=== PATIENT | male | born 1965 | race Caucasian/White ===

== ENCOUNTER 2021-08-15 11:56 | Emergency (ER) | payer SELFPAY ==
[~2021-08-15] VITALS: Ht 182.9 cm; Wt 90.9 kg
[2021-08-15 12:38] VITALS: TEMP 98
[2021-08-15] MEDS ORDERED: PROTONIX 40MG T40 MG PO (15:45)
[2021-08-15] MEDS ORDERED: LACTULOSE10 GM/153 PO (15:45)
[2021-08-15 16:00] VITALS: BP 120/61; PULSE 75
== END 2021-08-15 16:05 | disposition home or self-care (01) ==
LOC: COL.ER 11:56
DX: K74.60 Unspecified cirrhosis of liver (principal); N40.0 Benign prostatic hyperplasia without lower urinary tract symptoms

== ENCOUNTER 2021-08-22 09:02 | Inpatient (IN) | payer SELFPAY ==
[~2021-08-22] VITALS: Wt 109.1 kg
[~2021-08-22 09:02] MED LIST: LACTULOSE10 GM/153 PO; PROTONIX 40MG T40 MG PO
[2021-08-22 09:48] LABS: BASO # 0.1 K/mm3 (0.0-0.2); BASO % 1.2 % (0.0-2.0); EOS # 0.1 K/mm3 (0.0-0.7); EOS % 2.8 % (0-4.0); GRAN % 71.4 % (42.2-75.2); LYMPH # 0.7 K/mm3 (1.2-3.4); LYMPH % 16.8 % (20.0-51.0); MEAN CELL VOLUME 95 fl (80.0-100.0); MEAN CORPUSCULAR HGB CONC 33 g/dl (33.0-37.0); MONO # 0.3 K/mm3 (0.1-0.6); MONO % 6.9 % (1.7-9.3); PLATELET COUNT 70 K/mm3 (130-400); RED BLOOD COUNT 2.82 M/mm3 (4.20-5.60); REDCELL DISTRIBUTION WIDTH-CV 14.7 % (11.5-14.5)
[2021-08-22 09:54] LABS: HEMATOCRIT 26.9 % (42.0-52.0); HEMOGLOBIN 8.8 g/dl (13.5-18.0); MEAN CORPUSCULAR HEMOGLOBIN 31 pg (27.0-31.0)
[2021-08-22 10:01] LABS: ALANINE AMINOTRANSFERASE 21 U/L (0-55); ALBUMIN 2.1 gm/dL (3.5-5.0); ALKALINE PHOSPHATASE 100 U/L (40-150); ANION GAP 8 mmol/L (7-16); AST,SGOT 31 U/L (5-34); BILIRUBIN,TOTAL 3.8 mg/dL (0.2-1.2); BLOOD UREA NITROGEN 6 mg/dL (8-26); CARBON DIOXIDE 20 mmol/L (22-29); CHLORIDE 117 mmol/L (98-107); CREATININE, serum 0.67 mg/dL (0.72-1.25); GLUCOSE 112 mg/dL (70-99); POTASSIUM 3.5 mmol/L (3.5-4.5); SODIUM 145 mmol/L (136-145); TOTAL PROTEIN 5.3 gm/dL (6.2-8.1)
[2021-08-22 10:02] LABS: ALCOHOL(ethanol),MEDICAL < 10 mg/dL (0-10)
[2021-08-22 13:14] LABS: COLLECTION METHOD CLEAN CATCH
[2021-08-22 13:27] LABS: MUCOUS Present (NOT PRESENT); PH 7 (5-8); SQUAMOUS EPITHELIAL None Seen /hpf (0-10); URINE APPEARANCE Clear (CLEAR/HAZY); URINE BACTERIA None Seen (NONE SEEN); URINE BILIRUBIN Negative (NEGATIVE); URINE BLOOD Negative (NEGATIVE); URINE COLOR Yellow (YELLOW); URINE GLUCOSE Negative (NEGATIVE); URINE KETONE Negative (NEGATIVE); URINE LEUKOCYTE ESTERASE Negative (NEGATIVE); URINE NITRATE Negative (NEGATIVE); URINE PROTEIN(semi-quant) Negative (NEGATIVE); URINE RBC 0-2 /hpf (0-2); URINE UROBILINOGEN Negative (NEGATIVE)
[2021-08-22 14:52] LABS: INR 1.8 (0.8-3.0); PROTHROMBIN TIME 19.6 SECONDS (9.7-12.8)
[2021-08-22 14:59] LABS: TRICYCLIC ANTIDEPRESS URINE NEGATIVE
[2021-08-22 17:00] VITALS: BP 157/80; PULSE 68; TEMP 98.3
[2021-08-22 17:15] VITALS: BP 157/80; PULSE 68; TEMP 98.3
--- NOTE | 2021-08-22 19:28 | NUR ---
Patient admitted to room 355. Report recieved from JEB Guadarrama. Upon initial assessment patient was alert to name but otherwise confused. Lung sounds clear to auscultation, bowel sounds present in all four quadrants, patient jaundice, skin issues noted in admission assessment. Normal s1 and s2 sounds present, radial and pedal pulses +2 bilaterally. Patient denies any pain, discomfort, SOA, or further needs at this time. Unable to complete med rec. Patient poor historian. VSS. Fall percautions in place.
[2021-08-22 21:19] VITALS: BP 177/78; PULSE 78; TEMP 98.3
--- NOTE | 2021-08-22 21:59 | NUR ---
Patient assessed around 1924. Alert, but disoriented. Easily redirected for short periods of time. Voices no questions, needs, or concerns at this time. In bed with call light within reach.
[2021-08-23 00:50] VITALS: BP 148/84; PULSE 98; TEMP 98.2
[2021-08-23 03:34] VITALS: BP 152/73; PULSE 87; TEMP 98.8
--- NOTE | 2021-08-23 05:57 | NUR ---
Patient has been awake on and off this shift. Has been eatting well. Continues to be alert and oriented to self. Thinks he is in the hospital in [place]. Easily redirected, but forgetful. High fall risk precautions in place. In bed with call light within reach.
[2021-08-23 06:59] LABS: BASO # 0.1 K/mm3 (0.0-0.2); BASO % 1.1 % (0.0-2.0); EOS # 0.3 K/mm3 (0.0-0.7); EOS % 5.4 % (0-4.0); GRAN # 3.6 K/mm3 (1.4-6.5); LYMPH # 1.3 K/mm3 (1.2-3.4); LYMPH % 22.3 % (20.0-51.0); MEAN CELL VOLUME 95 fl (80.0-100.0); MEAN CORPUSCULAR HGB CONC 33 g/dl (33.0-37.0); MEAN PLATELET VOLUME 10.5 fl (7.4-10.4); MONO # 0.4 K/mm3 (0.1-0.6); MONO % 6.7 % (1.7-9.3); PLATELET COUNT 76 K/mm3 (130-400); RED BLOOD COUNT 2.85 M/mm3 (4.20-5.60); REDCELL DISTRIBUTION WIDTH-CV 14.6 % (11.5-14.5)
[2021-08-23 07:07] LABS: INR 1.7 (0.8-3.0)
[2021-08-23 07:18] LABS: HEMATOCRIT 27.1 % (42.0-52.0); HEMOGLOBIN 8.9 g/dl (13.5-18.0); MEAN CORPUSCULAR HEMOGLOBIN 31 pg (27.0-31.0)
[2021-08-23 07:22] LABS: ALBUMIN 2.1 gm/dL (3.5-5.0); BILIRUBIN,TOTAL 3.8 mg/dL (0.2-1.2); CALCIUM 7.9 mg/dL (8.4-10.2); CREATININE, serum 0.68 mg/dL (0.72-1.25); MAGNESIUM 1.4 mg/dL (1.6-2.6); POTASSIUM 3.1 mmol/L (3.5-4.5); TOTAL PROTEIN 5.3 gm/dL (6.2-8.1)
[2021-08-23 07:57] VITALS: BP 158/71; PULSE 86; TEMP 98.5
--- NOTE | 2021-08-23 11:00 | NUR ---
Scheduled medications given. Shift assessment performed. Patient orientated to person, but unable to answer time and place correctly. K+ and magnesium replacement in progress. Patient denies any pain, discomfort, or further needs at this time. VSS. Call light in reach. Fall percautions in place.
[2021-08-23 12:11] VITALS: BP 148/97; PULSE 84; TEMP 98.3
[2021-08-23 16:00] VITALS: BP 137/92; PULSE 79; TEMP 98.9
--- NOTE | 2021-08-23 16:10 | NUR ---
The patient presented to the ED from the [facility]. He was found naked lying in stool and urine. SARITA contacted Shira at the [facility] to follow up on the patient. Shira reports that the patient had never had any incidents before the one above. She reports that the patient has been with them for 2-3 weeks and that he was looking for jobs. She reports that the patient is not banned from them. She reports that they just cannot take him in his current medical condition and if he does not get better. SARITA then met with the patient. The patient has been oriented to self, but not location. The patient confirms [facility] He states that he has been in [place] for a couple month. He could not recall where he was at before the [facility]. He states that he is unsure if has been seeing a provider. He reports that he has been to [facility] and states that he has been established with Ronak Sanchez in the past. He then remembered that he used to live in [place] and went to a clinic there. The patient does not have a DPOA-HC. He states that he has no one. He reports that he is not , has no children, and that his parents are . He reports that he has two siblings: Kwame and Juanita Tompkins. He states that he thinks Juanita lives in [place] and Kwame in [place]. He reports that he does not get along with them though and does not have phone numbers for them. A psych consult has been ordered. SARITA to continue to follow.
--- NOTE | 2021-08-23 16:22 | NUR ---
Patient has had an ok day. Patient alert and oriented. VSS. Patient has denied any pain, discomfort, or further needs at this time. Call light in reach. Fall percautions in place.
[2021-08-23 19:33] VITALS: BP 136/82; PULSE 88; TEMP 98.4
--- NOTE | 2021-08-24 01:00 | NUR ---
PT IS A&O X4, PLEASANT ET COOPERATIVE, ANSWERS ALL QUESTIONS APPROPRIATELY @ THIS TIME. PT HAD HEADACHE EARLIER IN NIGHT ET HAD REQUESTED NAPROXEN. Maciej JUAREZ APRN WAS NOTIFIED ET NEW ORDERS WERE RECEIVED. PT DENIES PAIN @ THIS TIME BUT IS INCONTINENT OF A LARGE AMOUNT OF URINE. PT'S LINENS ET BRIEFS CHANGED. PERICARE COMPLETED. LARGE RED BRUISE IS SEEN ON PT'S HIP. PT STATES THAT IT WAS FROM A FALL HE HAD BEFORE HE CAME TO THE HOSPITAL. PT HAS BEEN EATING ET DRINKING WELL, REQUESTS FREQUENT SNACKS ET DRINKS. PT DENIES OTHER NEEDS. RESPIRATIONS ARE UNLABORED. BED ALARM ON, CALL LIGHT WITHIN REACH.
[2021-08-24 01:09] VITALS: BP 150/77; PULSE 87; TEMP 98.6
--- NOTE | 2021-08-24 03:13 | NUR ---
PT IS AWAKE IN BED ET HAS TAKEN OFF INCONTINENT BRIEFS ET BLANKETS. manager visual REPORT THAT PT HAS SEEMED CONFUSED IN CONVERSATION. PT IS ORIENTED X3 ET SEEMS TO ACT MORE INAPPROPRIATELY THAN CONFUSED. PT IS ASSISTED INTO BR WITH SBA ET GAIT BELT TO VOID ET THEN ASSISTED BACK INTO BED. PT DENIES OTHER NEEDS. BED ALARM ON. CALL LIGHT WITHIN REACH.
[2021-08-24 04:15] VITALS: BP 127/68; PULSE 80; TEMP 98.2
[2021-08-24 07:14] LABS: CREATININE, serum 0.66 mg/dL (0.72-1.25); POTASSIUM 3.7 mmol/L (3.5-4.5)
[2021-08-24 07:24] LABS: BASO % 0.8 % (0.0-2.0); EOS # 0.4 K/mm3 (0.0-0.7); GRAN # 2.9 K/mm3 (1.4-6.5); GRAN % 60.1 % (42.2-75.2); LYMPH # 1.1 K/mm3 (1.2-3.4); LYMPH % 22.1 % (20.0-51.0); MEAN CELL VOLUME 96 fl (80.0-100.0); MEAN CORPUSCULAR HGB CONC 33 g/dl (33.0-37.0); MEAN PLATELET VOLUME 11.9 fl (7.4-10.4); MONO # 0.4 K/mm3 (0.1-0.6); MONO % 8.6 % (1.7-9.3); PLATELET COUNT 54 K/mm3 (130-400); RED BLOOD COUNT 2.58 M/mm3 (4.20-5.60); REDCELL DISTRIBUTION WIDTH-CV 14.4 % (11.5-14.5)
[2021-08-24 07:25] LABS: HEMATOCRIT 24.8 % (42.0-52.0); HEMOGLOBIN 8.1 g/dl (13.5-18.0); MEAN CORPUSCULAR HEMOGLOBIN 31 pg (27.0-31.0)
--- NOTE | 2021-08-24 08:07 | NUR ---
PT ASSESSED. NO COMPLAINTS OF PAIN OR DYSPNEA. NO SIGNS OR SYMPTOMS OF DISTRESS. CALL LIGHT WITHIN REACH
[2021-08-24 08:08] VITALS: BP 129/70; PULSE 74; TEMP 97.8
[2021-08-24 12:01] VITALS: BP 130/77; PULSE 72; TEMP 97.7
[2021-08-24 16:26] VITALS: BP 143/79; PULSE 78; TEMP 97.5
[2021-08-24 20:33] VITALS: BP 149/82; PULSE 78; TEMP 97.8
--- NOTE | 2021-08-25 00:21 | NUR ---
Patient assessed around 2014. Alert and oriented x 4. Denies pain and discomfort. Voices no questions, needs, or concerns at this time. In bed with call light within reach.
[2021-08-25 00:39] VITALS: PULSE 78; TEMP 98.7
[2021-08-25 05:13] VITALS: BP 172/80; PULSE 70; TEMP 98.1
--- NOTE | 2021-08-25 06:05 | NUR ---
Patient has denied pain and discomfort this shift. Voices no questions, needs, or concerns at this time. In bed with call light within reach.
[2021-08-25 06:44] LABS: BASO % 0.9 % (0.0-2.0); EOS # 0.4 K/mm3 (0.0-0.7); GRAN # 2.9 K/mm3 (1.4-6.5); GRAN % 62.1 % (42.2-75.2); LYMPH # 0.9 K/mm3 (1.2-3.4); LYMPH % 19.8 % (20.0-51.0); MEAN CELL VOLUME 97 fl (80.0-100.0); MEAN CORPUSCULAR HGB CONC 33 g/dl (33.0-37.0); MEAN PLATELET VOLUME 10.9 fl (7.4-10.4); MONO # 0.4 K/mm3 (0.1-0.6); MONO % 8.6 % (1.7-9.3); PLATELET COUNT 63 K/mm3 (130-400); RED BLOOD COUNT 2.77 M/mm3 (4.20-5.60); REDCELL DISTRIBUTION WIDTH-CV 14.1 % (11.5-14.5)
[2021-08-25 06:53] LABS: HEMATOCRIT 26.8 % (42.0-52.0); HEMOGLOBIN 8.7 g/dl (13.5-18.0); MEAN CORPUSCULAR HEMOGLOBIN 31 pg (27.0-31.0)
[2021-08-25 07:01] LABS: CALCIUM 7.4 mg/dL (8.4-10.2); CREATININE, serum 0.63 mg/dL (0.72-1.25); MAGNESIUM 1.6 mg/dL (1.6-2.6); POTASSIUM 3.5 mmol/L (3.5-4.5)
[2021-08-25 07:22] VITALS: BP 156/85; PULSE 74; TEMP 98.2
[2021-08-25] MEDS ORDERED: MAG-OX 400400 MG/TAB PO ×2 (09:28→09:41)
[2021-08-25] MEDS ORDERED: LACTULOSE10 GM/153 PO ×2 (09:28→09:41)
--- NOTE | 2021-08-25 09:52 | NUR ---
PT ASSESSED. NO COMPLAINTS OF PAIN OR DYSPNEA. NO SIGNS OR SYMPTOMS OF DISTRESS. CALL LIGHT WITHIN REACH
--- NOTE | 2021-08-25 10:29 | NUR ---
Initial visit; Patient thanked Documentation Analyst for looking in on him, Jeffrey stated that he is always alone with no friends or family. Documentation Analyst offered encouragement, prayer and God's blessings.
--- NOTE | 2021-08-25 13:34 | NUR ---
DISCHARGE INSTRUCTIONS GIVEN. ALL QUESTIONS AND CONCERNS ANSWERED. IV REMOVED.
--- NOTE | 2021-08-25 16:42 | NUR ---
transition social worker contact Shira at [facility]. Shira states that at this moment the patient is on the "do not return list" and wanted an updates. Informed her that the patient's behavior (per physician) were a direct cause of the patient being out of his medications. Shira states that [facility] was not able to hold his bed and they do not have an available one open at this time. Phone call made to [facility] and provided information to this patient's situation. [facility] is accepting of this patient coming to them post dc. Medication voucher to [facility] is provided to the patient. Patient will be discharged with Lactulose ($45.68) and Mag-ox ($4.95). Informations faxed to [facility]. Patient provided a transportation voucher with [employer]. Phone call made and [facility] states that they can be here at 1300 to pick the patient up. Patient's RN and community service manager Milly notified. Patient is provided with a shirt, sweatpants, scarf and care bag provided to the patient. Rn notified me that the patient does have shoes and a jacket with him. Discharge plan: Be able with medication voucher and transportation voucher.
== END 2021-08-25 12:30 | disposition home or self-care (01) | DRG 442 ==
LOC: COL.ER 09:02 → MEDICAL 13:13
PROVIDERS: Personal Emergency Response Attendant; Physician Assistant; ADMIT Internal Medicine
DX: K72.90 Hepatic failure, unspecified without coma (principal); D61.818 Other pancytopenia; E87.2 Acidosis; K21.9 Gastro-esophageal reflux disease without esophagitis; D64.9 Anemia, unspecified; E87.6 Hypokalemia; K70.30 Alcoholic cirrhosis of liver without ascites; E83.42 Hypomagnesemia; T47.3X6A Underdosing of saline and osmotic laxatives, initial encounter; Z91.138 Patient's unintentional underdosing of medication regimen for other reason; Z59.00 Homelessness unspecified; Z20.822 Contact with and (suspected) exposure to COVID-19; Z23 Encounter for immunization
CPT/HCPCS: 99223-AI; 99232-AI; J1650; J3475

== ENCOUNTER 2021-08-28 12:03 | Observation (INO) | payer SELFPAY ==
[~2021-08-28] VITALS: Ht 182.9 cm; Wt 99.3 kg
[~2021-08-28 12:03] MED LIST changes: +MAG-OX 400400 MG/TAB PO
[2021-08-28 12:33] LABS: BASO # 0.1 K/mm3 (0.0-0.2); BASO % 1.5 % (0.0-2.0); EOS # 0.2 K/mm3 (0.0-0.7); EOS % 4.3 % (0-4.0); GRAN # 2.7 K/mm3 (1.4-6.5); GRAN % 67.2 % (42.2-75.2); HEMOGLOBIN 10.4 g/dl (13.5-18.0); LYMPH # 0.7 K/mm3 (1.2-3.4); LYMPH % 17.4 % (20.0-51.0); MEAN CELL VOLUME 92 fl (80.0-100.0); MEAN CORPUSCULAR HEMOGLOBIN 31 pg (27.0-31.0); MEAN CORPUSCULAR HGB CONC 34 g/dl (33.0-37.0); MEAN PLATELET VOLUME 10.1 fl (7.4-10.4); MONO # 0.4 K/mm3 (0.1-0.6); MONO % 9.1 % (1.7-9.3); PLATELET COUNT 81 K/mm3 (130-400); RED BLOOD COUNT 3.34 M/mm3 (4.20-5.60); REDCELL DISTRIBUTION WIDTH-CV 13.8 % (11.5-14.5)
[2021-08-28 12:37] LABS: HEMATOCRIT 30.7 % (42.0-52.0); INR 1.6 (0.8-3.0); PROTHROMBIN TIME 18.2 SECONDS (9.7-12.8)
[2021-08-28 12:47] LABS: ALBUMIN 2.2 gm/dL (3.5-5.0); BILIRUBIN,TOTAL 5.2 mg/dL (0.2-1.2); CALCIUM 7.9 mg/dL (8.4-10.2); CREATININE, serum 0.63 mg/dL (0.72-1.25); POTASSIUM 3.2 mmol/L (3.5-4.5); TOTAL PROTEIN 5.6 gm/dL (6.2-8.1)
--- NOTE | 2021-08-28 14:24 | NUR ---
SARITA responded to consult. The patient presented to the ED after being found wandering the streets naked. SARITA contacted Shira at the [facility]. Shira reports that [facility] was not able to take care of the patient, when he was dropped off their on Saturday. She states that they found him wandering naked in the cold again this morning and contacted EMS. She states that the patient gets confused and did not even know that his backpack was his own. She states that they would not be able to take the patient back in the condition that he is in. SARITA then contacted [facility]. [facility] reports that the patient was dropped off at their doors just an hour before they closed on Saturday. She reports that they put him up in a hotel for the weekend, but do not normally do this and the patient is not their normal clientele. [facility] reports that it appears that the patient cannot take care of himself and that he is not taking him medications. SARITA contacted [facility]. The marketing production coordinator reports that the patient has been with them before. He reports that they would not be able to take the patient right now and they are not taking any outside people. SARITA updated the patient's RN. The patient is to be admitted. SARITA made an [facility] report. Intake ID#[id number].
[2021-08-28 17:50] VITALS: BP 152/84; PULSE 70; TEMP 98.7
--- NOTE | 2021-08-28 18:02 | NUR ---
PT ARRIVED TO FLOOR, VITALS TAKEN.
--- NOTE | 2021-08-28 18:34 | NUR ---
MAG AND POTASSIUM GIVEN, DINNER ORDERED, ICE WATER GIVEN TO PT
[2021-08-28 20:03] VITALS: BP 159/82; PULSE 71; TEMP 98.5
[2021-08-29] VITALS (8 sets, daily range): BP systolic 135–165; BP diastolic 65–86; PULSE 66–81; TEMP 97.7–98.3
--- NOTE | 2021-08-29 00:09 | NUR ---
Resting in bed watching TV. Receiving lactulose every 2 hours per orders. Denies pain/nausea/shortness of breath. Has not had a BM yet. Denies current question/concerns. Call light in reach. Will monitor.
--- NOTE | 2021-08-29 01:01 | NUR ---
Patient had a large soft formed BM-mojica in color. Lactulose Q2H continues until next BM.
--- NOTE | 2021-08-29 05:13 | NUR ---
Up to bathroom at this time-large loose stool. Assisted back to bed. 3rd stool for this shift. Will start order of TID lactulose instead of Q2H. Denies current needs. Call light in reach. Will monitor.
[2021-08-29 07:10] LABS: MEAN CELL VOLUME 95 fl (80.0-100.0); MEAN CORPUSCULAR HGB CONC 33 g/dl (33.0-37.0); MEAN PLATELET VOLUME 10.6 fl (7.4-10.4); PLATELET COUNT 72 K/mm3 (130-400); RED BLOOD COUNT 2.93 M/mm3 (4.20-5.60)
[2021-08-29 07:15] LABS: HEMATOCRIT 27.8 % (42.0-52.0); HEMOGLOBIN 9.2 g/dl (13.5-18.0); MEAN CORPUSCULAR HEMOGLOBIN 31 pg (27.0-31.0)
[2021-08-29 07:19] LABS: BILIRUBIN,TOTAL 3.5 mg/dL (0.2-1.2); CALCIUM 8.3 mg/dL (8.4-10.2); CREATININE, serum 0.7 mg/dL (0.72-1.25); POTASSIUM 3.5 mmol/L (3.5-4.5); TOTAL PROTEIN 4.9 gm/dL (6.2-8.1)
--- NOTE | 2021-08-29 08:00 | NUR ---
PT PLEASANT, AOX4, DENIES PAIN, MEDICAITONS GIVEN, ASSESSMENT PERFORMED, DRINKS BROUGHT IN TO PT, VITALS REVIEWED, NO OTHER NEEDS
[2021-08-29 08:16] LABS: BASOPHIL 2 % (0-2); EOSINOPHIL 3 % (0-4)
[2021-08-29 08:17] LABS: BAND 3 % (0-10); PLATELET ESTIMATE DECREASED (NORMAL)
[2021-08-29 08:18] LABS: LYMPHOCYTE 23 % (20.0-51.0); NEUTROPHILS 59 % (42.0-75.2)
--- NOTE | 2021-08-29 12:43 | NUR ---
face worker met with patient to discuss discharge plan. Patient reports that since last discharge on Saturday, [facility] placed the patient at the [facility] and paid for three nights. Patient reports that he was dropped off with no food, water or fresh clothing. [place] noting that the patient is wearing he same shirt that i provided to him at the time of discharge on Saturday. Patient reports that he was living in an apartment in [place] when he got evicted for unknown reasons. At that time the client went to [facility] [place] [facility] and was unhappy with the conditions so he left. During this time the patient reports that the [facility] would provide him with his medication Lactulose.[facility] and ended up in [place] where he spent the night on the street. From [place] he continued migrating and that is how he ended up in [place]. Patient reports that he has been at [facility] for about a month and he has been working with Shira to establish employment and housing. Patient states that upon his dc last Saturday he did stop and [facility] and picked up his medications that i provided a voucher for. Patient reports that he does have a brother thatlives somewhere in [place] and a sister that lives in [place] but has no contact with either of them. Reports to no friends in the area. Patient verbalizes that he is aware that being out of his medications have led to an ammonia build up in his system which is what has led to his confusion. Patient verbalizes that he was not fully naked the last time he was picked up and states that his pants were messy and he was using his coat to cover up because he had no clean clothes. Patient reports to being in touch with Shira and she informed him that she was making phone calls to get him back into the [facility]. Patient reports that he is wanting to discharge to [facility] and is wanting to find a job so he can become independent again. Shira with [facility] contacted who confirms that the patient had been actively looking for jobs and was trying to get him housing. She reports that the client IS able to come back to the [facility] when he is medically stable with his medications, but unfortunately does not have a bed available at this time. Informed Shira that Jannet is currently here talking with the patient and Jannet will get in contact with Shira to collaborate on this patient's future housing plans. Jannet with [facility] comes to vist with the patient. Jannet reports after her meeting with the patient that she stressed the importance of staying on his medication. She reports that [facility] both have spots open that she can help get him into and that she verbalized this to the patient. She reports to me that she arranged to meet the patient at [facility] at 1000 on Saturday to create a plan. Informed Jannet that Shira with [facility] states they do not have a bed open at this time and that the patient does not have a place to go once he is ready for dc. Both Rosa and Nam agree that the patient would not be a good candidate for eith the CSU or a Level II facility due to his high level of functioning. Encouraged Jannet to reach out to Shira for more information on this patient. Physician staff notified of the above interactions and that the patient may have to be discharged without a place to go until Saturday's meeting.
--- NOTE | 2021-08-29 15:50 | NUR ---
Patient wanted to talk due to concerns of Shira at [facility] being unwilling to set up meeting for 1000 am on Saturday and wanted me to reach out to her. Contact made with Shira by me stating that Jannet was the one wanting to set up a meeting with the patient and Shira there at [facility]. Provided Shira with both Jannet's office phone number and cell number. Shira reports that she will reach out to Rosa.
--- NOTE | 2021-08-29 17:19 | NUR ---
PT PLEASANT, AOX4, REPORTS HEADACHE AND MEDICATION GIVEN, SNACKS PROVIDED PER REQUEST, NO OTHER NEEDS
--- NOTE | 2021-08-29 22:00 | NUR ---
ASSESSMENT COMPLETE. PT SITTING ON THE SIDE OF THE BED. PT WANTS TO WALK AROUND THE UNIT, BUT NEEDS STAFF TO WALK WITH HIM. PT'S A BIT IMPATIENT, AND GETS UP WITHOUT SEEKING ASSISSTANCE. PT REMINDED SEVERAL TIMES TO USE CALL LIGHT WHEN HE NEEDS TO GET UP. WILL KEEP AN EYE ON HIM. PT'S INT WAS LEAKING AND HAD TO BE REPLACED. PT DENIES PAIN, PALPITATIONS, SOB OR DIZZINESS. PT GIVEN MILK, PB & J SANDWICHES; SANDWICH BOX; ETC. PT STATES HE HAS NO OTHER NEEDS AT THIS TIME. CALL LIGHT WITHIN REACH.
--- NOTE | 2021-08-29 23:20 | NUR ---
Report received from JEB Grossman. Assumed care for rest of shift. VS have remained stable. Denies pain/nausea/shortness of breath. New IV placed to right [id number] attempts by this nurse. Assessment complete. Plan of care discussed for this shift to include meds/calling for questions and concerns. Verbalizes understanding. Call light in reach. Will monitor.
--- NOTE | 2021-08-30 02:09 | NUR ---
Noted to be consistently high in blood pressure on days/early shift mechanic. Spoke with ERNESTINA Bhatt and new orders received and initiated.
[2021-08-30 04:33] VITALS: BP 154/82; PULSE 91; TEMP 98.4
--- NOTE | 2021-08-30 05:50 | NUR ---
Has been up all shift. Walked in the hallway stand by assist. Denied pain/nausea/shortness of breath. Noted to have elevated blood pressure-PA notified and lisinopril given. Tele reporting SR. SCDs off currently-wore few a few hours and took them off. Expressed concern that he doesnt know where he is going to go after here. States he wants to get to [place] so he can get a job and actually have a place to live. SW already on case. Denies any questions or concerns at this time. Call light in reach. Will monitor.
--- NOTE | 2021-08-30 07:30 | NUR ---
MEDICATIONS GIVEN, PT REPORTING CONCERNS FOR HOMELESSNESS, REPORTS TRYING TO FIND A JOB, DENIES PAIN AT THIS TIME, ASSESSMENT PERFORMED, NO OTHER NEEDS
[2021-08-30 07:47] VITALS: BP 142/69; PULSE 93; TEMP 98.4
--- NOTE | 2021-08-30 09:25 | NUR ---
PT REPORTING HEADACHE AT THIS TIME, NAPROXEN GIVEN PRN. PT ALSO REQUESTING TRAZADONE TO HELP HIM SLEEP AT NIGHT, HE REPORTS IT WAS GIVEN AT [facility] AND HELPED HIM. BROUGHT UP TO ERNESTINA DOMINGUEZ BEFORE ROUNDING
[2021-08-30] MEDS ORDERED: DESYREL 50MG50 MG PO (09:51)
[2021-08-30] MEDS ORDERED: ZESTRIL 10MG10 MG PO (09:51)
[2021-08-30 10:52] LABS: BASO # 0.1 K/mm3 (0.0-0.2); EOS # 0.4 K/mm3 (0.0-0.7); EOS % 7.6 % (0.0-4.0); GRAN # 3.9 K/mm3 (1.4-6.5); GRAN % 66.5 % (42.2-75.2); LYMPH # 0.9 K/mm3 (1.2-3.4); LYMPH % 15.1 % (20.0-51.0); MEAN CELL VOLUME 97 fl (80.0-100.0); MEAN CORPUSCULAR HGB CONC 32 g/dl (33.0-37.0); MEAN PLATELET VOLUME 10.9 fl (7.4-10.4); MONO # 0.5 K/mm3 (0.1-0.6); MONO % 9.1 % (1.7-9.3); PLATELET COUNT 82 K/mm3 (130-400); RED BLOOD COUNT 3.15 M/mm3 (4.20-5.60)
[2021-08-30 10:54] LABS: HEMATOCRIT 30.4 % (42.0-52.0); HEMOGLOBIN 9.7 g/dl (13.5-18.0); MEAN CORPUSCULAR HEMOGLOBIN 31 pg (27-31)
[2021-08-30 11:07] LABS: ALBUMIN 2.2 gm/dL (3.5-5.0); BILIRUBIN,TOTAL 3.2 mg/dL (0.2-1.2); CALCIUM 8.5 mg/dL (8.4-10.2); CREATININE, serum 0.62 mg/dL (0.72-1.25); POTASSIUM 3.8 mmol/L (3.5-4.5); TOTAL PROTEIN 5.5 gm/dL (6.2-8.1)
[2021-08-30 12:35] VITALS: BP 145/78; PULSE 94; TEMP 98.4
--- NOTE | 2021-08-30 14:09 | NUR ---
Jannet from [facility] contacted SARITA Munguia stating that she will be able to place the patient in the [facility] in [place] and pay for the fee's until until a bed at the alf opens up. Jannet is going to provide the patient with clothing and food as well. Collaborated with the physican staff during rounding. Patient will be discharged today to the [facility]. Patient will be sent with new medications. Voucher provided to the patient for Zestril ($10.55) and Desyrel ($10.57). [employer] contacted who reports that due to inclement weather they will not be able to provide transportation to [place]. [employer] contacted who states that they will be able to provide transportation, but they cannot accept cards and that they can only accept boland or [employer] ALICIAWilian Cook with [employer] states that a trip to [facility] and then to the [facility] would be a total of $40.00. Contacted administration and was able to obtain the $40.00 for the patient's taxi. Educated the patient that Jannet is going to meet him at the [facility]. Discharge plan: Patient will discharge to [facility] where [facility] worker will meet him there.
--- NOTE | 2021-08-30 14:24 | NUR ---
pt escorted out via wheelchair, discharge education provided, medications obtained from pharmacy and returned to pt, iv removed, no other needs
== END 2021-08-30 14:00 | disposition home or self-care (01) ==
LOC: COL.ER 12:03 → MEDICAL 14:08
PROVIDERS: Emergency Medicine; Physician Assistant; ADMIT Student in an Organized Health Care Education/Training Program
DX: K72.90 Hepatic failure, unspecified without coma (principal); K74.60 Unspecified cirrhosis of liver; R26.81 Unsteadiness on feet; R74.8 Abnormal levels of other serum enzymes; E87.6 Hypokalemia; E83.42 Hypomagnesemia; R79.89 Other specified abnormal findings of blood chemistry; D64.9 Anemia, unspecified; D69.6 Thrombocytopenia, unspecified; K21.9 Gastro-esophageal reflux disease without esophagitis; Z79.899 Other long term (current) drug therapy
CPT/HCPCS: 99239; G0378; J3475